=== PATIENT | female | born 1975 | race American Indian/Alaskan Native ===

== ENCOUNTER 2016-11-18 16:20 | Emergency (ER) | payer MEDICAID ==
[2016-11-18 17:09] LABS: Basophils % (Auto) 0.6 % (0.0-1.8); Eosinophils % (Auto) 1.5 % (0.0-4.3); Hemoglobin 10.8 gm/dl (10.1-14.3); Mean Corpuscular HGB Conc 32 % (30-34); Mean Corpuscular Volume 77 fl (79-97); Platelet Count 243 K/mm3 (140-440); Red Blood Count 4.43 M/mm3 (3.65-5.03); Red Cell Distribution Width 15.2 % (13.2-15.2); White Blood Count 5.9 K/mm3 (4.5-11.0)
[2016-11-18 17:11] LABS: Mean Corpuscular Hemoglobin 24 pg (28-32)
[2016-11-18 17:25] LABS: Alanine Aminotransferase 7 units/L (7-56); Albumin 4.1 g/dL (3.9-5); Albumin/Globulin Ratio 1.1 %; Alkaline Phosphatase 65 units/L (35-129); Anion Gap 17 mmol/L; Bilirubin,Total 0.3 mg/dL (0.1-1.2); Blood Urea Nitrogen 9 mg/dL (7-17); Calcium 9.2 mg/dL (8.4-10.2); Carbon Dioxide 22 mmol/L (22-30); Chloride 103.3 mmol/L (98-107); Glucose 85 mg/dL (65-100); Lipase 55 units/L (13-60); Potassium 3.4 mmol/L (3.6-5.0); Sodium 139 mmol/L (137-145); Total Protein 7.8 g/dL (6.3-8.2)
[2016-11-18 18:36] LABS: Bilirubin,Urine NEG (Negative); Blood,Urine MOD (Negative); Ketones,Urine NEG (Negative); Leukocyte Esterase,Urine NEG (Negative); Mucus,Urine FEW /HPF; Nitrite,Urine NEG (Negative); Protein,Urine <15 mg/dL mg/dL (Negative); Urobilinogen,Urine < 2.0 mg/dL (<2.0)
[2016-11-18] MEDS ORDERED: MORPHINE IV ONE (21:05)
[2016-11-18] MEDS ORDERED: ZOFRAN IV ONE (21:05)
[2016-11-18] MEDS ORDERED: NACL 0.9% 1000 ML 1,000 ML IV ONE (21:05)
--- NOTE | 2016-11-18 21:08 | Emergency Department Report ---
ED Abdominal Pain HPI - General Chief Complaint: Abdominal Pain Stated Complaint: VOMITTING,SEVERE HEADACHE Time Seen by Provider: 11/18/16 20:51 Source: patient Mode of arrival: Ambulatory Limitations: No Limitations - History of Present Illness Initial Comments: Pt is a 41-year-old female with a history of gastric bypass in 2005 now presenting with abdominal pain, nausea, vomiting, and headaches. Patient reports she's been nauseous and vomiting for one year however she's had increasing bouts of vomiting for the last 3 weeks with associated headache. She has had serial follow-up with her bariatric surgeon and/or stove mounter. Patient does report she had postoperative complications 3 in 2005. Otherwise no fevers, chills, chest pain, shortness of breath, trauma, travel, or sick contacts. MD Complaint: abdominal pain - Related Data Home Medications Medication Instructions Recorded Confirmed Last Taken metFORMIN [Glucophage] 500 mg PO BID 12/27/14 02/10/15 01/11/15 Previous Rx's Medication Instructions Recorded Last Taken Type [place] Carbonate [Eskalith] 300 mg PO Q12H #60 capsule 12/31/14 01/11/15 Rx Mirtazapine [Remeron] 30 mg PO QHS #30 tablet 12/31/14 01/11/15 Rx Ondansetron [Zofran ODT TAB] 4 mg PO Q6H PRN #30 tab.rapdis 12/31/14 01/11/15 Rx HYDROcodone/APAP 5-325 [[place] 1 - 2 each PO Q6HR PRN #14 tablet 01/24/16 Unknown Rx 5-325 mg TAB] Promethazine [Phenergan SUPPOS] 25 mg [place] Q6HR PRN #10 supp.rect 01/24/16 Unknown Rx Promethazine [Phenergan TAB] 25 mg PO Q6HR PRN #20 tab 01/24/16 Unknown Rx Omeprazole 40 mg PO QDAY #30 capsule. 10/06/16 Unknown Rx Ondansetron [Zofran TAB] 4 mg PO Q8HR PRN #15 tablet 10/06/16 Unknown Rx Ondansetron [Zofran ODT TAB] 8 mg PO Q8HR PRN #12 tab.rapdis 11/18/16 Unknown Rx Pantoprazole [Protonix TAB] 40 mg PO QDAY #30 tablet 11/18/16 Unknown Rx Allergies Allergy/AdvReac Type Severity Reaction Status Date / Time No Known Allergies Allergy Verified 12/27/14 11:03 ED Review of Systems ROS: Stated complaint: VOMITTING,SEVERE HEADACHE Other details as noted in HPI Comment: All other systems reviewed and negative ED Past Medical Hx - Past Medical History Previous Medical History?: Yes Hx Hypertension: Yes Hx Congestive Heart Failure: No Hx Diabetes: Yes (TYPE 2) Hx Psychiatric Treatment: Yes (SEVERE BIPOLAR / SEVERE DEPRESSION) Hx Asthma: No Hx COPD: No Hx HIV: No Additional medical history: ANEMIA. VERTIGO - Surgical History Past Surgical History?: Yes Additional Surgical History: GASTRIC BYPASS 2005. HYSTERECTOMY 2013 - Social History Smoking Status: Never Smoker Substance Use Type: None - Medications Home Medications: Home Medications Medication Instructions Recorded Confirmed Last Taken Type metFORMIN [Glucophage] 500 mg PO BID 12/27/14 02/10/15 01/11/15 History [place] Carbonate [Eskalith] 300 mg PO Q12H #60 capsule 12/31/14 02/10/15 Rx Mirtazapine [Remeron] 30 mg PO QHS #30 tablet 12/31/14 02/10/15 01/11/15 Rx Ondansetron [Zofran ODT TAB] 4 mg PO Q6H PRN #30 tab.rapdis 12/31/14 02/10/15 Rx HYDROcodone/APAP 5-325 [[place] 1 - 2 each PO Q6HR PRN #14 tablet 01/24/16 Unknown Rx 5-325 mg TAB] Promethazine [Phenergan SUPPOS] 25 mg [place] Q6HR PRN #10 supp.rect 01/24/16 Unknown Rx Promethazine [Phenergan TAB] 25 mg PO Q6HR PRN #20 tab 01/24/16 Unknown Rx Omeprazole 40 mg PO QDAY #30 capsule. 10/06/16 Unknown Rx Ondansetron [Zofran TAB] 4 mg PO Q8HR PRN #15 tablet 10/06/16 Unknown Rx Ondansetron [Zofran ODT TAB] 8 mg PO Q8HR PRN #12 tab.rapdis 11/18/16 Unknown Rx Pantoprazole [Protonix TAB] 40 mg PO QDAY #30 tablet 11/18/16 Unknown Rx ED Physical Exam - General Limitations: No Limitations General appearance: alert, in no apparent distress - Head Head exam: Present: atraumatic, normocephalic - Eye Eye exam: Present: normal appearance - ENT ENT exam: Present: mucous membranes moist - Neck Neck exam: Present: normal inspection - Respiratory Respiratory exam: Present: normal lung sounds bilaterally. Absent: respiratory distress - Cardiovascular Cardiovascular Exam: Present: regular rate, normal rhythm. Absent: systolic murmur, diastolic murmur, rubs, gallop - GI/Abdominal GI/Abdominal exam: Present: soft, normal bowel sounds. Absent: tenderness, guarding, rebound, rigid, organomegaly, pulsatile mass, hernia - Rectal Rectal exam: Present: deferred - Extremities Exam Extremities exam: Present: normal inspection - Back Exam Back exam: Present: normal inspection - Neurological Exam Neurological exam: Present: alert, oriented X3, CN II-XII intact, abnormal gait. Absent: motor sensory deficit - Psychiatric Psychiatric exam: Present: normal affect, normal mood - Skin Skin exam: Present: warm, dry, intact, normal color. Absent: rash ED Course Vital Signs 11/18/16 11/18/16 11/18/16 16:34 20:48 20:51 Temperature 98.6 F 98.3 F Pulse Rate 68 Pulse Rate [ 67 Lying] Pulse Rate [ 74 Sitting] Pulse Rate [ 81 Standing] Respiratory 16 Rate Blood Pressure 146/88 Blood Pressure 145/83 [Lying] Blood Pressure 137/87 [Sitting] Blood Pressure 144/89 [Standing] O2 Sat by Pulse 100 Oximetry ED Medical Decision Making - Lab Data Result diagrams: 11/18/16 16:46 11/18/16 16:46 - Radiology Data Radiology results: report reviewed CT abdomen and pelvis: Bilateral nephrolithiasis. No significant hydronephrosis. Left adrenal nodule suggesting adenomatous change, stable. Findings suggestive of constipation. Findings may be due to incomplete and nondistention versus nonspecific postinflammatory change in the esophagus. Correlate clinically. Critical care attestation.: If time is entered above; I have spent that time in minutes in the direct care of this critically ill patient, excluding procedure time. ED Disposition Clinical Impression: Abdominal pain, Chronic nausea, Headache Disposition: DISCHARGED TO HOME OR SELFCARE Is pt being admited?: No Condition: Stable Instructions: Abdominal Pain (ED), Acute Headache (ED) Prescriptions: Ondansetron [Zofran ODT TAB] 8 mg PO Q8HR PRN #12 tab.rapdis PRN Reason: Nausea Pantoprazole [Protonix TAB] 40 mg PO QDAY #30 tablet Referrals: PRIMARY CARE, [Primary Care Provider] - 3-5 Days
--- NOTE | 2016-11-18 22:05 | Cat Scan Report ---
FINAL REPORT EXAM: CT ABDOMEN PELVIS W CON HISTORY: abd pain, bariatric pt TECHNIQUE: Spiral CT scanning of the abdomen and pelvis after the uneventful administration of IV contrast. Multiplanar reformations. 100 mL Omnipaque IV. PRIORS: 24 January 2016. FINDINGS: Abdomen: Visualized lung bases show mild atelectatic change or scarring bilaterally. Distal esophagus incompletely or nondistended, with some wall thickening about the same. No radiopaque gallstones. Postsurgical changes again noted about the stomach. Liver without significant abnormality. Spleen without significant abnormality. Pancreas without significant abnormality. A few calcifications again noted in the bilateral kidneys, largest in left renal upper pole measuring approximately 6-7 mm. No significant hydronephrosis or abnormal perinephric fluid collection. Nodular density in the left adrenal gland measures approximately 2.1 cm about the same. Right adrenal gland grossly unremarkable. Pelvis: Bowel grossly unremarkable, with large amount of retained stool. Appendix within normal limits. No significant free peritoneal fluid or apparent adenopathy. Abdominal aorta non-aneurysmal. IMPRESSION: 1. Bilateral nephrolithiasis. No significant hydronephrosis. 2. Left adrenal nodule suggesting adenomatous change, stable. 3. Findings suggestive of constipation. 4. Findings which may be due to incomplete or nondistention versus nonspecific postinflammatory change in the esophagus. Correlate clinically.
[2016-11-18 22:30] VITALS: BP 129/78
== END 2016-11-18 22:35 | disposition home or self-care (01) ==
LOC: ED 16:20
DX: R10.9 Unspecified abdominal pain (principal); R11.0 Nausea; R51 Headache; I10 Essential (primary) hypertension; E11.9 Type 2 diabetes mellitus without complications; F32.9 Major depressive disorder, single episode, unspecified; D64.9 Anemia, unspecified
CPT/HCPCS: 36415; 74177; 80053; 81001; 83690; 85025; 96361; 96374; 96375; 99284; J2270; J2405; J7030; Q9967

== ENCOUNTER 2017-04-01 09:05 | Inpatient (IN) | payer MEDICAID ==
[2017-04-01 10:03] LABS: Basophils % (Auto) 0.5 % (0.0-1.8); Eosinophils % (Auto) 1.2 % (0.0-4.3); Hematocrit 35.5 % (30.3-42.9); Hemoglobin 11.3 gm/dl (10.1-14.3); Mean Corpuscular HGB Conc 32 % (30-34); Mean Corpuscular Volume 79 fl (79-97); Platelet Count 267 K/mm3 (140-440); Red Blood Count 4.51 M/mm3 (3.65-5.03); Red Cell Distribution Width 15.5 % (13.2-15.2); White Blood Count 4.8 K/mm3 (4.5-11.0)
[2017-04-01 10:19] LABS: Mean Corpuscular Hemoglobin 25 pg (28-32)
[2017-04-01 10:25] LABS: Alanine Aminotransferase 6 units/L (7-56); Albumin 4.1 g/dL (3.9-5); Alkaline Phosphatase 67 units/L (35-129); Anion Gap 17 mmol/L; Blood Urea Nitrogen 9 mg/dL (7-17); Calcium 9.2 mg/dL (8.4-10.2); Carbon Dioxide 23 mmol/L (22-30); Chloride 105.6 mmol/L (98-107); Glucose 93 mg/dL (65-100); Lipase 21 units/L (13-60); Potassium 3.7 mmol/L (3.6-5.0); Sodium 142 mmol/L (137-145); Total Protein 8.4 g/dL (6.3-8.2)
[2017-04-01] MEDS ORDERED: ZOFRAN IV ONE (10:34)
[2017-04-01] MEDS ORDERED: DILAUDID IV ONE ×3 (10:34→14:20)
[2017-04-01] MEDS ORDERED: NACL 0.9% 1000 ML 1,000 ML IV ONE ×2 (10:34→10:37)
--- NOTE | 2017-04-01 10:42 | Emergency Department Report ---
ED Abdominal Pain HPI - General Chief Complaint: Abdominal Pain Stated Complaint: NAUSEA/DIZZY/FEVER Time Seen by Provider: 04/01/17 09:51 Source: patient Mode of arrival: Ambulatory Limitations: No Limitations - History of Present Illness Initial Comments: 41-year-old female with a past medical history of diabetes, hypertension, bipolar disease, anemia, gastric bypass, and hysterectomy presents to the Hospital with complaints of abdominal pain, nausea, and vomiting 6 days. Patient complains of mid abdominal sharp intermittent pain with palpation. Pain rated moderate to severe in intensity. No alleviating factors. Patient has been unable to tolerate food or liquids. For the last 2 days patient has noticed blood in her vomit which has decreases and is more streak like today. No reports of melena, hematochezia, diarrhea, recent travel, or sick contacts. Patient is no longer taking a PPI. She reports a fever 102 yesterday. Positive lightheadedness - Related Data Home Medications Medication Instructions Recorded Confirmed Last Taken metFORMIN [Glucophage] 500 mg PO BID 12/27/14 02/10/15 01/11/15 Previous Rx's Medication Instructions Recorded Last Taken Type [place] Carbonate [Eskalith] 300 mg PO Q12H #60 capsule 12/31/14 01/11/15 Rx Mirtazapine [Remeron] 30 mg PO QHS #30 tablet 12/31/14 01/11/15 Rx Ondansetron [Zofran ODT TAB] 4 mg PO Q6H PRN #30 tab.rapdis 12/31/14 01/11/15 Rx HYDROcodone/APAP 5-325 [[place] 1 - 2 each PO Q6HR PRN #14 tablet 01/24/16 Unknown Rx 5-325 mg TAB] Promethazine [Phenergan SUPPOS] 25 mg [place] Q6HR PRN #10 supp.rect 01/24/16 Unknown Rx Promethazine [Phenergan TAB] 25 mg PO Q6HR PRN #20 tab 01/24/16 Unknown Rx Omeprazole 40 mg PO QDAY #30 capsule.dr 10/06/16 Unknown Rx Ondansetron [Zofran TAB] 4 mg PO Q8HR PRN #15 tablet 10/06/16 Unknown Rx Ondansetron [Zofran ODT TAB] 8 mg PO Q8HR PRN #12 tab.rapdis 11/18/16 Unknown Rx Pantoprazole [Protonix TAB] 40 mg PO QDAY #30 tablet 11/18/16 Unknown Rx Allergies Allergy/AdvReac Type Severity Reaction Status Date / Time No Known Allergies Allergy Verified 12/27/14 11:03 ED Review of Systems ROS: Stated complaint: NAUSEA/DIZZY/FEVER Other details as noted in HPI Comment: All other systems reviewed and negative Other: Constitutional: No fevers chills Eyes: No eye pain visual changes ENT: Positive throat pain Neck: Denies pain Respiratory: Denies cough wheezing shortness of breath Cardiovascular: Denies chest pain, palpitations, syncope GI: As per HPI : Denies dysuria Musculoskeletal: Denies back pain Skin: Denies rash, lesions, erythema Neurologic: Denies headache, numbness, weakness Psychiatric: Denies suicidal ideation, hallucinations ED Past Medical Hx - Past Medical History Previous Medical History?: Yes Hx Hypertension: Yes Hx Congestive Heart Failure: No Hx Diabetes: Yes (TYPE 2) Hx Psychiatric Treatment: Yes (SEVERE BIPOLAR / SEVERE DEPRESSION) Hx Asthma: No Hx COPD: No Hx HIV: No Additional medical history: ANEMIA. VERTIGO - Surgical History Past Surgical History?: Yes Additional Surgical History: GASTRIC BYPASS 2005. HYSTERECTOMY 2013 - Social History Smoking Status: Never Smoker Substance Use Type: None - Medications Home Medications: Home Medications Medication Instructions Recorded Confirmed Last Taken Type metFORMIN [Glucophage] 500 mg PO BID 12/27/14 02/10/15 01/11/15 History [place]ate [Eskalith] 300 mg PO Q12H #60 capsule 12/31/14 02/10/15 Rx Mirtazapine [Remeron] 30 mg PO QHS #30 tablet 12/31/14 02/10/15 01/11/15 Rx Ondansetron [Zofran ODT TAB] 4 mg PO Q6H PRN #30 tab.rapdis 12/31/14 02/10/15 Rx HYDROcodone/APAP 5-325 [[place] 1 - 2 each PO Q6HR PRN #14 tablet 01/24/16 Unknown Rx 5-325 mg TAB] Promethazine [Phenergan SUPPOS] 25 mg [place] Q6HR PRN #10 supp.rect 01/24/16 Unknown Rx Promethazine [Phenergan TAB] 25 mg PO Q6HR PRN #20 tab 01/24/16 Unknown Rx Omeprazole 40 mg PO QDAY #30 capsule. 10/06/16 Unknown Rx Ondansetron [Zofran TAB] 4 mg PO Q8HR PRN #15 tablet 10/06/16 Unknown Rx Ondansetron [Zofran ODT TAB] 8 mg PO Q8HR PRN #12 tab.rapdis 11/18/16 Unknown Rx Pantoprazole [Protonix TAB] 40 mg PO QDAY #30 tablet 11/18/16 Unknown Rx ED Physical Exam - General Limitations: No Limitations - Other Other exam information: General: No limitations, patient is alert in no acute distress Head exam: Atraumatic, normocephalic Eyes exam: Normal appearance, pupils equal reactive to light, extraocular movements intact ENT: Moist mucous membrane, mild erythema to posterior pharynx with small exudate greater on the right. Neck exam: Normal inspection, full range of motion, no meningismus nontender Respiratory exam: Clear to auscultation bilateral, no wheezes, rales, crackles Cardiovascular: Normal rate and rhythm Abdomen: Soft, nondistended, and generalized abdominal tenderness on the right side of the abdomen, with normal bowel sounds, no rebound, or guarding Extremity: Full range of motion normal inspection no deformity Back: Normal Inspection, full range of motion, no tenderness Neurologic: Alert, oriented x3, cranial nerves intact, no motor or sensory deficit Psychiatric: normal affect, normal mood Skin: Warm, dry, intact ED Course Vital Signs 04/01/17 04/01/17 04/01/17 09:20 10:01 10:03 Temperature 98.2 F Pulse Rate 80 86 Respiratory 18 16 Rate Blood Pressure 118/84 124/90 124/90 O2 Sat by Pulse 100 100 Oximetry 04/01/17 04/01/17 04/01/17 10:05 10:07 10:09 Temperature Pulse Rate 79 71 76 Respiratory 17 21 21 Rate Blood Pressure 124/90 124/90 124/90 O2 Sat by Pulse 100 100 100 Oximetry 04/01/17 04/01/17 04/01/17 10:11 10:13 10:17 Temperature Pulse Rate 65 78 Respiratory 20 17 20 Rate Blood Pressure 124/90 124/90 O2 Sat by Pulse 100 100 100 Oximetry 04/01/17 04/01/17 04/01/17 11:17 11:18 11:19 Temperature Pulse Rate 57 L 64 59 L Respiratory 12 13 11 L Rate Blood Pressure 134/93 134/93 134/93 O2 Sat by Pulse 100 100 100 Oximetry 04/01/17 04/01/17 04/01/17 11:21 11:23 11:25 Temperature Pulse Rate 63 73 71 Respiratory 14 11 L 13 Rate Blood Pressure 134/93 134/93 134/93 O2 Sat by Pulse 99 99 98 Oximetry 04/01/17 04/01/17 04/01/17 11:27 11:29 11:31 Temperature Pulse Rate 56 L 56 L 61 Respiratory 8 L 9 L 9 L Rate Blood Pressure 134/93 134/93 134/93 O2 Sat by Pulse 100 100 100 Oximetry 04/01/17 04/01/17 04/01/17 11:33 11:35 11:37 Temperature Pulse Rate 71 56 L 75 Respiratory 12 9 L 9 L Rate Blood Pressure 134/93 134/93 134/93 O2 Sat by Pulse 99 100 100 Oximetry 04/01/17 04/01/17 04/01/17 11:39 11:41 11:43 Temperature Pulse Rate 61 63 58 L Respiratory 9 L 13 13 Rate Blood Pressure 134/93 134/93 134/93 O2 Sat by Pulse 100 100 100 Oximetry 04/01/17 04/01/17 04/01/17 11:45 11:47 11:49 Temperature Pulse Rate 60 59 L 58 L Respiratory 16 16 13 Rate Blood Pressure 134/93 134/93 134/93 O2 Sat by Pulse 100 100 100 Oximetry 04/01/17 04/01/17 04/01/17 11:51 11:53 11:55 Temperature Pulse Rate 60 59 L 52 L Respiratory 19 13 11 L Rate Blood Pressure 134/93 134/93 134/93 O2 Sat by Pulse 92 100 100 Oximetry 04/01/17 04/01/17 04/01/17 11:57 11:59 12:01 Temperature Pulse Rate 54 L 52 L 67 Respiratory 12 9 L 10 L Rate Blood Pressure 134/93 134/93 120/76 O2 Sat by Pulse 100 100 97 Oximetry 04/01/17 04/01/17 04/01/17 12:03 12:05 12:07 Temperature Pulse Rate 61 53 L 65 Respiratory 14 15 15 Rate Blood Pressure 120/76 120/76 120/76 O2 Sat by Pulse 75 L 92 94 Oximetry 04/01/17 04/01/17 04/01/17 12:09 12:11 12:13 Temperature Pulse Rate 69 80 66 Respiratory 9 L 13 12 Rate Blood Pressure 120/76 120/76 120/76 O2 Sat by Pulse 99 97 98 Oximetry 04/01/17 04/01/17 04/01/17 12:15 12:17 12:19 Temperature Pulse Rate 57 L 53 L 59 L Respiratory 20 13 13 Rate Blood Pressure 120/76 120/76 120/76 O2 Sat by Pulse 100 100 100 Oximetry 04/01/17 04/01/17 04/01/17 12:21 12:23 12:25 Temperature Pulse Rate 56 L 66 63 Respiratory 14 15 13 Rate Blood Pressure 120/76 120/76 120/76 O2 Sat by Pulse 99 100 100 Oximetry 04/01/17 04/01/17 04/01/17 12:27 12:29 12:31 Temperature Pulse Rate 57 L 59 L 54 L Respiratory 15 12 12 Rate Blood Pressure 120/76 120/76 120/76 O2 Sat by Pulse 98 97 98 Oximetry 04/01/17 04/01/17 04/01/17 12:33 12:35 12:37 Temperature Pulse Rate 56 L 58 L 64 Respiratory 14 13 11 L Rate Blood Pressure 120/76 120/76 120/76 O2 Sat by Pulse 97 97 100 Oximetry 04/01/17 04/01/17 04/01/17 12:39 12:41 12:43 Temperature Pulse Rate 71 65 65 Respiratory 13 11 L 13 Rate Blood Pressure 120/76 120/76 120/76 O2 Sat by Pulse 99 100 98 Oximetry 04/01/17 04/01/17 04/01/17 12:45 12:47 12:48 Temperature Pulse Rate 68 65 56 L Respiratory 13 12 13 Rate Blood Pressure 120/76 120/76 120/76 O2 Sat by Pulse 97 97 100 Oximetry 04/01/17 04/01/17 13:12 13:13 Temperature Pulse Rate 57 L 62 Respiratory 13 13 Rate Blood Pressure 120/76 121/80 O2 Sat by Pulse 100 Oximetry ED Medical Decision Making - Lab Data Result diagrams: 04/01/17 09:45 04/01/17 09:45 Lab Results 04/01/17 04/01/17 04/01/17 Range/Units 09:30 09:45 09:45 WBC 4.8 (4.5-11.0) K/mm3 RBC 4.51 (3.65-5.03) M/mm3 Hgb 11.3 (10.1-14.3) gm/dl Hct 35.5 (30.3-42.9) % MCV 79 (79-97) fl MCH 25 L (28-32) pg MCHC 32 (30-34) % RDW 15.5 H (13.2-15.2) % Plt Count 267 (140-440) K/mm3 Lymph % (Auto) 24.8 (13.4-35.0) % [place] % (Auto) 5.0 (0.0-7.3) % Eos % (Auto) 1.2 (0.0-4.3) % Baso % (Auto) 0.5 (0.0-1.8) % Lymph # 1.2 (1.2-5.4) K/mm3 [place] # 0.2 (0.0-0.8) K/mm3 Eos # 0.1 (0.0-0.4) K/mm3 Baso # 0.0 (0.0-0.1) K/mm3 Seg Neutrophils % 68.5 (40.0-70.0) % Seg Neutrophils # 3.3 (1.8-7.7) K/mm3 Sodium 142 (137-145) mmol/L Potassium 3.7 (3.6-5.0) mmol/L Chloride 105.6 (98-107) mmol/L Carbon Dioxide 23 (22-30) mmol/L Anion Gap 17 mmol/L BUN 9 (7-17) mg/dL Creatinine 0.6 L (0.7-1.2) mg/dL Estimated GFR > 60 ml/min BUN/Creatinine Ratio 15.00 % Glucose 93 (65-100) mg/dL POC Glucose 102 (70-105) Calcium 9.2 (8.4-10.2) mg/dL Total Bilirubin 0.50 (0.1-1.2) mg/dL AST 15 (5-40) units/L ALT 6 L (7-56) units/L Alkaline Phosphatase 67 (35-129) units/L Total Protein 8.4 H (6.3-8.2) g/dL Albumin 4.1 (3.9-5) g/dL Albumin/Globulin Ratio 1.0 % Lipase 21 (13-60) units/L Urine Color (Yellow) Urine Turbidity (Clear) Urine pH (5.0-7.0) Ur Specific [place] (1.003-1.030) Urine Protein (Negative) mg/dL Urine Glucose (UA) (Negative) mg/dL Urine Ketones (Negative) mg/dL Urine Blood (Negative) Urine Nitrite (Negative) Urine Bilirubin (Negative) Urine Urobilinogen (<2.0) mg/dL Ur Leukocyte Esterase (Negative) Urine WBC (Auto) (0.0-6.0) /HPF Urine RBC (Auto) (0.0-6.0) /HPF U Epithel Cells (Auto) (0-13.0) /HPF Urine Bacteria (Auto) (Negative) /HPF Hyaline Casts /LPF Urine Mucus /HPF 04/01/17 Range/Units 10:36 WBC (4.5-11.0) K/mm3 RBC (3.65-5.03) M/mm3 Hgb (10.1-14.3) gm/dl Hct (30.3-42.9) % MCV (79-97) fl MCH (28-32) pg MCHC (30-34) % RDW (13.2-15.2) % Plt Count (140-440) K/mm3 Lymph % (Auto) (13.4-35.0) % [place] % (Auto) (0.0-7.3) % Eos % (Auto) (0.0-4.3) % Baso % (Auto) (0.0-1.8) % Lymph # (1.2-5.4) K/mm3 [place] # (0.0-0.8) K/mm3 Eos # (0.0-0.4) K/mm3 Baso # (0.0-0.1) K/mm3 Seg Neutrophils % (40.0-70.0) % Seg Neutrophils # (1.8-7.7) K/mm3 Sodium (137-145) mmol/L Potassium (3.6-5.0) mmol/L Chloride (98-107) mmol/L Carbon Dioxide (22-30) mmol/L Anion Gap mmol/L BUN (7-17) mg/dL Creatinine (0.7-1.2) mg/dL Estimated GFR ml/min BUN/Creatinine Ratio % Glucose (65-100) mg/dL POC Glucose (70-105) Calcium (8.4-10.2) mg/dL Total Bilirubin (0.1-1.2) mg/dL AST (5-40) units/L ALT (7-56) units/L Alkaline Phosphatase (35-129) units/L Total Protein (6.3-8.2) g/dL Albumin (3.9-5) g/dL Albumin/Globulin Ratio % Lipase (13-60) units/L Urine Color Yellow (Yellow) Urine Turbidity Clear (Clear) Urine pH 5.0 (5.0-7.0) Ur Specific [place] 1.025 (1.003-1.030) Urine Protein 100 mg/dl (Negative) mg/dL Urine Glucose (UA) Neg (Negative) mg/dL Urine Ketones Neg (Negative) mg/dL Urine Blood Sm (Negative) Urine Nitrite Neg (Negative) Urine Bilirubin Neg (Negative) Urine Urobilinogen 2.0 (<2.0) mg/dL Ur Leukocyte Esterase Neg (Negative) Urine WBC (Auto) 3.0 (0.0-6.0) /HPF Urine RBC (Auto) 4.0 (0.0-6.0) /HPF U Epithel Cells (Auto) 6.0 (0-13.0) /HPF Urine Bacteria (Auto) 1+ (Negative) /HPF Hyaline Casts 1 /LPF Urine Mucus 3+ /HPF - Radiology Data Radiology results: report reviewed CT abdomen and pelvis without contrast: No acute abdominal process. Bilateral nephrolithiasis nonobstructing, surgical changes. No appreciable change compared to November 18, 2016 - Medical Decision Making Given patient's history of stricture at the gastric anastomosis site as similar presentation she will be admitted to hospital for further evaluation. Hematemesis likely secondary to Lucy-Chirinos tear but pt also has a history of an ulcer. In ED patient received multiple doses of Dilaudid, Zofran, and Protonix. Hospitalist has been informed. No signs of cardiac instability and no signs of anemia. - Differential Diagnosis gastritis, pancreatitis, hepatitis, viral syndrome, pharyngitis Critical Care Time: No Critical care attestation.: If time is entered above; I have spent that time in minutes in the direct care of this critically ill patient, excluding procedure time. ED Disposition Clinical Impression: Intractable abdominal pain, Vomiting, Hematemesis, Hx of gastric ulcer, Hx of gastric bypass Disposition: [id number] OP ADMIT IP TO THIS HOSP Is pt being admited?: Yes Condition: Stable Time of Disposition: 14:31 (Dr Gonzalez/hosp)
[2017-04-01 10:52] LABS: Bacteria,Urine 1+ /HPF (Negative); Bilirubin,Urine NEG (Negative); Blood,Urine SM (Negative); Ketones,Urine NEG (Negative); Leukocyte Esterase,Urine NEG (Negative); Mucus,Urine 3+ /HPF; Nitrite,Urine NEG (Negative)
[2017-04-01] MEDS: PROTONIX IV ONE ×2 (11:39→12:17)
[2017-04-01] MEDS ORDERED: NACL ONE (11:46)
--- NOTE | 2017-04-01 13:53 | Cat Scan Report ---
CT OF THE ABDOMEN AND PELVIS WITHOUT CONTRAST HISTORY: Abdominal pain, vomiting. TECHNIQUE: Helical CT without contrast. Sagittal and coronal reformatted images. FINDINGS: Compared to the CT abdomen pelvis with contrast performed 11/18/16. Heart size is normal. The visualized lung bases are clear. No suspicious bony lesion or fracture. The liver, biliary system, pancreas, spleen, adrenal glands, and aorta are within normal limits. Bilateral nephrolithiasis is again identified. There are 3 or 4 tiny calyceal stones in the right kidney. The largest stone measures 3 mm near the superior pole. There is a solitary 7 mm calyceal stone in the superior left kidney. No ureteral stones or hydronephrosis. The bladder is unremarkable. Surgical suture lines are noted along the greater curvature the stomach and a few proximal small bowel loops. Please correlate with surgical history. There is no evidence for bowel obstruction or bowel wall thickening. Normal appendix. Hysterectomy changes are noted. IMPRESSION: No acute abdominal process is appreciated. Bilateral nephrolithiasis, nonobstructing. Surgical changes as described. No significant change can be appreciated since 11/18/16.
--- NOTE | 2017-04-01 14:46 | Admit Criteria Form ---
Admission Criteria Documentation: ABDOMINAL PAIN Clinical Indications for Admission to Inpatient Care ( [facility]/check or initial the applicable condition/criteria): Admission is indicated for ANY ONE of the following (1)(2)(3)(4)(5)(6): [ ]I. Surgery needed that cannot be performed on ambulatory basis [ ]II. Peritoneal signs present (eg, rebound tenderness, rigidity) [ ]III. Evaluation requires patient to not eat or drink for extended period ( eg, more than 24 hours). [x]IV. Inpatient admission required[B] rather than observation care (see Abdominal Pain: Observation Care guideline as appropriate) because of ANY ONE of the following(7)(8)(9): [ ] a) Hemodynamic instability [ ]b) Severe pain requiring acute inpatient management [ ]c) Identification of etiology or finding that requires inpatient care (eg, aortic dissection, free air,bowel ischemia)(10) [ ]d) Absent bowel sounds with complete ileus (11) [ ]e) Signs of intestinal obstruction[C] [ ]f) Suspected toxic megacolon [ ]g) Severe electrolyte abnormalities requiring inpatient care [ ]h) High fever or infection requiring inpatient admission as indicated by ANY ONE of the following (12)(13): [ ]i) Appropriate outpatient or observation care antimicrobial treatment unavailable, not effective, or not feasible [ ]ii) Documented bacteremia [ ]iii) Temperature greater than 104.9 degrees F (40.5 degrees C) (oral) [ ]iv) Temperature greater than 103.1 degrees F (39.5 degrees C) ( oral) or less than 96.8 degrees F (36 degrees C) (rectal) that does not respond to all emergency treatment measures [ ]i) IV fluid required rather than oral rehydration to replace significant ongoing (eg, for greater than 24 hours) losses (greater than 3 L/m2 per day)(14)(15) [ ]j) Percutaneous or open drainage (eg, abscess, biliary tract) procedures [ ]k) Parenteral nutrition regimen that must be implemented on inpatient basis [x]l) Other condition, treatment, or monitoring requiring inpatient admission Extended stay beyond goal length of stay may be needed for (1)(3)(4)(10)(16): [ ]a) Surgery (e.g., colectomy, revascularization procedure) [ ]b) Persistent abdominal pain with suspected intra-abdominal process [ ]c) Diagnosed condition requiring continued stay (e.g., pancreatitis, complicated diverticulitis) The original [facility] [employer] content created by [facility] has been revised. The portions of the content which have been revised are identified through the use of italic text or in bold, and [facility] has neither reviewed nor approved the modified material.All other unmodified content is copyright [facility]. Please see references footnoted in the original [facility] edition 2017 Admission Criteria Met: Yes
--- NOTE | 2017-04-01 15:07 | History and Physical Report ---
History of Present Illness Chief complaint: My stomach hurts, and I feel nauseated History of present illness: 41 YO Female with HTN, DM, Anemia, Bipolar, Obesity, Metabolic Syndrome presents to ED for evaluation. Pt states that she had experienced intermittent nausea and vomiting for the past 1year, but has experienced acutely worsening symptoms over the past 6 days. Pt nausea and vomiting followed by abdominal pain 5/10, diffuse, nonradiating, no alleviating factors. Pt is unable to tolerated oral diet(solid or liquid). Pt also complains of 4 episodes of vomiting up blood over the past 2 days. Pt denies fever, chills, CP, Palpitations, melena, hematochezia, diarrhea, recent travel, or sick contacts. Patient is no longer taking a PPI. Past History Past Medical History: anemia, diabetes, hypertension, other (bipolar, obesity, metaabolic synddrome) Past Surgical History: hysterectomy, Other (gastric bypass) Social history: , lives with family. denies: smoking, alcohol abuse, prescription drug abuse Family history: diabetes, hypertension Medications and Allergies Allergies Allergy/AdvReac Type Severity Reaction Status Date / Time No Known Allergies Allergy Verified 12/27/14 11:03 Home Medications Medication Instructions Recorded Confirmed Last Taken Type Bismuth Subsalicylate [Pepto 15 ml PO PRN PRN 04/01/17 04/01/17 Unknown History Bismol] Review of Systems Constitutional: no weight loss, no weight gain, no fever, no chills Ears, nose, mouth and throat: no ear pain, no ear discharge, no tinnitis, no decreased hearing, no nose pain Breasts: no change in shape, no swelling, no mass Cardiovascular: no chest pain, no orthopnea, no palpitations, no rapid/ irregular heart beat, no edema, no syncope Respiratory: no cough, no cough with sputum, no excessive sputum, no hemoptysis Gastrointestinal: no nausea, no vomiting, no diarrhea, no constipation Genitourinary Female: no pelvic pain, no flank pain, no menorrhagia, no dysuria , no urinary frequency, no urgency Rectal: no pain, no incontinence, no bleeding Musculoskeletal: no neck pain, no shooting arm pain, no arm numbness/tingling, no low back pain, no shooting leg pain, no leg numbness/tingling Integumentary: no rash, no pruritis, no redness, no sores, no wounds Neurological: no transient paralysis, no paralysis, no weakness, no parathesias , no numbness Psychiatric: no memory loss, no change in sleep habits, no sleep disturbances, no insomnia, no hypersomnia, no change in appetite Endocrine: no cold intolerance, no heat intolerance, no polyphagia, no excessive thirst, no polydipsia Hematologic/Lymphatic: no easy bruising, no easy bleeding Allergic/Immunologic: no urticaria, no allergic rhinitis, no wheezing Exam - Constitutional Vitals: Temp Pulse Resp BP Pulse Ox 98.2 F 62 13 121/80 100 04/01/17 09:20 04/01/17 13:13 04/01/17 13:13 04/01/17 13:13 04/01/17 13:13 General appearance: Present: mild distress, obese - EENT Eyes: Present: PERRL ENT: hearing intact, clear oral mucosa - Neck Neck: Present: supple, normal ROM - Respiratory Respiratory: bilateral: CTA - Cardiovascular Heart Sounds: Present: S1 & S2. Absent: rub, click - Extremities Extremities: pulses symmetrical, No edema Peripheral Pulses: within normal limits - Abdominal General gastrointestinal: Present: soft, tender. Absent: hepatomegaly, splenomegaly, mass Localized gastrointestinal: tender: diffuse Female genitourinary: Present: normal - Integumentary Integumentary: Present: clear, warm, dry - Musculoskeletal Musculoskeletal: gait normal, strength equal bilaterally - Psychiatric Psychiatric: appropriate mood/affect, intact judgment & insight - Neurologic Neurologic: CNII-XII intact, moves all extremities Results - Labs CBC & Chem 7: 04/01/17 09:45 04/01/17 09:45 Labs: Abnormal lab results 04/01/17 04/01/17 Range/Units 09:45 09:45 MCH 25 L (28-32) pg RDW 15.5 H (13.2-15.2) % Creatinine 0.6 L (0.7-1.2) mg/dL ALT 6 L (7-56) units/L Total Protein 8.4 H (6.3-8.2) g/dL Assessment and Plan - Patient Problems (1) Upper GI bleed Current Visit: Yes Status: Acute Plan to address problem: GI consulted, supportive care, repeat cbc, PPI therapy (2) Hematemesis Current Visit: Yes Status: Acute Qualifiers: Nausea presence: N Plan to address problem: Suspected secondary to parminder lyons tear. Supportive care, Endoscopy as per GI team. (3) Intractable abdominal pain Current Visit: Yes Status: Acute Plan to address problem: Pain control, supportive care. (4) Bipolar disorder Current Visit: No Status: Chronic Qualifiers: Active/Remission status: currently active Current bipolar episode type: depressed Current episode severity: current episode moderate Psychotic features: without psychotic features Most recent bipolar episode type: M Plan to address problem: resume home medication, supportive care. (5) Diabetes mellitus Current Visit: No Status: Chronic Qualifiers: Diabetes mellitus type: type 2 Diabetes mellitus complication status: without complication Diabetes mellitus complication detail: D Diabetic retinopathy severity: D Proliferative retinopathy type: P Diabetes mellitus macular edema: D Diabetes mellitus half-way insulin use: D Laterality: L Chronic kidney disease stage: C Plan to address problem: ADA diet, insulin, accu check (6) DVT prophylaxis Current Visit: Yes Status: Acute
[2017-04-01] MEDS ORDERED: TYLENOL PO PRN (15:10)
[2017-04-01] MEDS ORDERED: PROVENTIL IH PRN (15:10)
[2017-04-01] MEDS: CARAFATE PO SCH ×2 (17:58→21:50)
[2017-04-01] MEDS ORDERED: MORPHINE IV ONE (22:44)
[2017-04-02] MEDS: ZOFRAN IV PRN ×2 (08:33→16:49)
[2017-04-02] MEDS ORDERED: MORPHINE IV PRN (09:52)
--- NOTE | 2017-04-02 09:55 | Progress Note ---
Assessment and Plan Assessment and plan: --acute upper GI bleeding No new episodes of bleeding, nothing by mouth, Protonix GI evaluation, closely monitor H&H and transfuse as needed --Abdominal pain: Probably secondary to upper GI bleeding, symptomatic management Follow GI evaluation --History of bipolar disorder; resume home medications consisted of psych evaluation if needed --Type 2 diabetes mellitus; Accu-Chek sliding scale coverage and ADA diet and insulin as needed --Asymptomatic bradycardia --DVT prophylaxis; SCDs No pharmacologic anticoagulation at this point in view of GI bleeding History Interval history: Patient seen and evaluated medical records reviewed Admitted for hematemesis No new episodes since admission Hospitalist Physical - Constitutional Vitals: Temp Pulse Resp BP Pulse Ox 98.0 F 61 18 101/63 98 04/02/17 08:27 04/02/17 08:27 04/02/17 08:27 04/02/17 08:27 04/02/17 08:27 General appearance: Present: mild distress, obese - EENT Eyes: Present: PERRL, EOM intact - Neck Neck: Present: supple, normal ROM - Respiratory Respiratory effort: normal Respiratory: bilateral: diminished, negative: rales, rhonchi, wheezing - Cardiovascular Rhythm: regular Heart Sounds: Present: S1 & S2 - Extremities Extremities: no ischemia, No edema - Abdominal General gastrointestinal: soft, non-tender, non-distended, normal bowel sounds - Integumentary Integumentary: Present: clear, warm - Psychiatric Psychiatric: appropriate mood/affect, cooperative - Neurologic Neurologic: CNII-XII intact, moves all extremities Results - Labs CBC & Chem 7: 04/03/17 05:54 04/03/17 05:54 Labs: Laboratory Last Values WBC 4.8 K/mm3 (4.5-11.0) 04/01/17 09:45 RBC 4.51 M/mm3 (3.65-5.03) 04/01/17 09:45 Hgb 11.3 gm/dl (10.1-14.3) 04/01/17 09:45 Hct 35.5 % (30.3-42.9) 04/01/17 09:45 MCV 79 fl (79-97) 04/01/17 09:45 MCH 25 pg (28-32) L 04/01/17 09:45 MCHC 32 % (30-34) 04/01/17 09:45 RDW 15.5 % (13.2-15.2) H 04/01/17 09:45 Plt Count 267 K/mm3 (140-440) 04/01/17 09:45 Lymph % (Auto) 24.8 % (13.4-35.0) 04/01/17 09:45 [place] % (Auto) 5.0 % (0.0-7.3) 04/01/17 09:45 Eos % (Auto) 1.2 % (0.0-4.3) 04/01/17 09:45 Baso % (Auto) 0.5 % (0.0-1.8) 04/01/17 09:45 Lymph # 1.2 K/mm3 (1.2-5.4) 04/01/17 09:45 [place] # 0.2 K/mm3 (0.0-0.8) 04/01/17 09:45 Eos # 0.1 K/mm3 (0.0-0.4) 04/01/17 09:45 Baso # 0.0 K/mm3 (0.0-0.1) 04/01/17 09:45 Seg Neutrophils % 68.5 % (40.0-70.0) 04/01/17 09:45 Seg Neutrophils # 3.3 K/mm3 (1.8-7.7) 04/01/17 09:45 Sodium 142 mmol/L (137-145) 04/01/17 09:45 Potassium 3.7 mmol/L (3.6-5.0) 04/01/17 09:45 Chloride 105.6 mmol/L (98-107) 04/01/17 09:45 Carbon Dioxide 23 mmol/L (22-30) 04/01/17 09:45 Anion Gap 17 mmol/L 04/01/17 09:45 BUN 9 mg/dL (7-17) 04/01/17 09:45 Creatinine 0.6 mg/dL (0.7-1.2) L 04/01/17 09:45 Estimated GFR > 60 ml/min 04/01/17 09:45 BUN/Creatinine Ratio 15.00 % 04/01/17 09:45 Glucose 93 mg/dL (65-100) 04/01/17 09:45 POC Glucose 102 (70-105) 04/01/17 09:30 Calcium 9.2 mg/dL (8.4-10.2) 04/01/17 09:45 Total Bilirubin 0.50 mg/dL (0.1-1.2) 04/01/17 09:45 AST 15 units/L (5-40) 04/01/17 09:45 ALT 6 units/L (7-56) L 04/01/17 09:45 Alkaline Phosphatase 67 units/L (35-129) 04/01/17 09:45 Total Protein 8.4 g/dL (6.3-8.2) H 04/01/17 09:45 Albumin 4.1 g/dL (3.9-5) 04/01/17 09:45 Albumin/Globulin Ratio 1.0 % 04/01/17 09:45 Lipase 21 units/L (13-60) 04/01/17 09:45 Urine Color Yellow (Yellow) 04/01/17 10:36 Urine Turbidity Clear (Clear) 04/01/17 10:36 Urine pH 5.0 (5.0-7.0) 04/01/17 10:36 Ur Specific Stewart 1.025 (1.003-1.030) 04/01/17 10:36 Urine Protein 100 mg/dl mg/dL (Negative) 04/01/17 10:36 Urine Glucose (UA) Neg mg/dL (Negative) 04/01/17 10:36 Urine Ketones Neg mg/dL (Negative) 04/01/17 10:36 Urine Blood Sm (Negative) 04/01/17 10:36 Urine Nitrite Neg (Negative) 04/01/17 10:36 Urine Bilirubin Neg (Negative) 04/01/17 10:36 Urine Urobilinogen 2.0 mg/dL (<2.0) 04/01/17 10:36 Ur Leukocyte Esterase Neg (Negative) 04/01/17 10:36 Urine WBC (Auto) 3.0 /HPF (0.0-6.0) 04/01/17 10:36 Urine RBC (Auto) 4.0 /HPF (0.0-6.0) 04/01/17 10:36 U Epithel Cells (Auto) 6.0 /HPF (0-13.0) 04/01/17 10:36 Urine Bacteria (Auto) 1+ /HPF (Negative) 04/01/17 10:36 Hyaline Casts 1 /LPF 04/01/17 10:36 Urine Mucus 3+ /HPF 04/01/17 10:36
[2017-04-02] MEDS: CARAFATE PO SCH ×2 (09:57→11:57)
[2017-04-02] MEDS: PEPCID IV SCH ×2 (10:08→22:25)
--- NOTE | 2017-04-02 11:45 | Gastroenterology Consultation ---
History of Present Illness - Reason for Consult Consult date: 04/02/17 Intractable vomiting, hematemesis Requesting physician: JORGE A DELGADO - History of Present Illness The patient is a 41 year old female for whom consultation was requested for intractable vomiting and coffee ground colored hematemesis. She had gastric bypass surgery in 2005 and had had intermittent outlet obstructions and frequent vomiting since that time. She has had two prior gastric outlet dilations endoscopically and reports that after the intial surgery, she required two surgical revisions. The patient has had progressive vomiting for the past 2 months and has been losing weight again. She takes Goody powders daily, frequently 6 doses. She does not smoke or drink. Past History Past Medical History: anemia, diabetes, hypertension, other (bipolar, obesity, metaabolic synddrome) Past Surgical History: hysterectomy, Other (gastric bypass) Social history: , lives with family. denies: smoking, alcohol abuse, prescription drug abuse Family history: diabetes, hypertension Medications and Allergies Allergies Allergy/AdvReac Type Severity Reaction Status Date / Time No Known Allergies Allergy Verified 12/27/14 11:03 Home Medications Medication Instructions Recorded Confirmed Last Taken Type Bismuth Subsalicylate [Pepto 15 ml PO PRN PRN 04/01/17 04/01/17 Unknown History Bismol] metFORMIN [Glucophage] 500 mg PO BID 04/02/17 04/02/17 Unknown History Active Meds: Active Medications Acetaminophen (Tylenol) 650 mg PO Q4H PRN PRN Reason: Pain MILD(1-3)/Fever >100.5/MARIE Albuterol (Proventil) 2.5 mg IH Q4HRT PRN PRN Reason: Shortness Of Breath Famotidine (Pepcid) 20 mg IV BID [facility] Last Admin: 04/02/17 10:08 Dose: 20 mg Influenza Virus Vaccine Quadrival (Fluarix Quad [id number](36 Mos+)) 0.5 ml IM .ONCE ONE Stop: 04/02/17 12:01 Insulin Aspart (Novolog) 0 units SUB-Q ACHS [facility] PRN Reason: Protocol Morphine Sulfate (Morphine) 1 mg IV Q6H PRN PRN Reason: Pain, Moderate (4-6) Last Admin: 04/02/17 10:08 Dose: 1 mg Ondansetron HCl (Zofran) 4 mg IV Q6H PRN PRN Reason: Nausea And Vomiting Last Admin: 04/02/17 08:33 Dose: 4 mg Pantoprazole Sodium (Protonix) 20 mg PO QDAY [facility] Pneumococcal Polyvalent Vaccine (Pneumovax 23) 0.5 ml IM .ONCE ONE Stop: 04/02/17 12:01 Sucralfate (Carafate) 1 gm PO ACHS [facility] Last Admin: 04/02/17 09:57 Dose: Not Given Review of Systems - Review of Systems Constitutional: weight loss Eyes: no change in vision Ears, Nose, Throat: no decreased hearing, no difficulty swallowing, no epistaxis , no painful swallowing Breasts: deferred Cardiovascular: no chest pain, no shortness of breath, no syncope Respiratory: no cough, no shortness of breath, no wheezing Gastrointestinal: abdominal pain, nausea, vomiting, hematemesis, no diarrhea, no constipation, no change in bowel habits, no BRBPR, no melena Rectal: no pain Female Genitourinary: deferred Musculoskeletal: no gait dysfunction, no joint pain, no muscle pain Integumentary: no rash, no pruritis, no jaundice Neurological: no head injury, no paralysis, no weakness Psychiatric: no anxiety, no memory loss Endocrine: no cold intolerance, no heat intolerance Hematologic/Lymphatic: no easy bruising Allergic/Immunologic: no wheezing Exam - Constitutional Vital Signs: Temp Pulse Resp BP Pulse Ox 98.0 F 61 18 101/63 98 04/02/17 08:27 04/02/17 08:27 04/02/17 08:27 04/02/17 08:27 04/02/17 08:27 General appearance: no acute distress, well-nourished - EENT Eyes: PERRL ENT: hearing intact, clear oral mucosa, dentition normal - Neck Neck: supple, normal ROM, no masses or JVD - Respiratory Respiratory effort: normal Respiratory: bilateral: CTA - Breasts Breasts: deferred - Cardiovascular Rhythm: regular Heart Sounds: Present: S1 & S2. Absent: gallop, rub Extremities: pulses intact, No edema, normal color, Full ROM - Gastrointestinal General gastrointestinal: Present: soft, tender (Epigastric tenderness, no rebound), non-distended, normal bowel sounds. Absent: hepatomegaly, splenomegaly, mass Rectal Exam: deferred - Genitourinary Female Genitourinary: deferred - Integumentary Integumentary: Present: clear, warm, dry - Neurologic Neurological: alert and oriented x3 - Psychiatric Psychiatric: appropriate mood/affect, intact judgment & insight, memory intact - Labs CBC & Chem 7: 04/01/17 09:45 04/01/17 09:45 Assessment and Plan - Patient Problems (1) Hematemesis Current Visit: Yes Status: Acute Qualifiers: Nausea presence: N Plan to address problem: Rule out marginal ulcer, gastritis due to inappropriate salicylate use. Rule out recurrent partial gastric outlet obstruction. EGD will be planned tomorrow AM (2) Hx of gastric bypass Current Visit: Yes Status: Acute (3) Bipolar disorder Current Visit: No Status: Chronic Qualifiers: Active/Remission status: currently active Current bipolar episode type: depressed Current episode severity: current episode moderate Psychotic features: without psychotic features Most recent bipolar episode type: M
[2017-04-02] MEDS ORDERED: Fluarix Quad 2017-2018(36 MOS+) IM ONE ×2 (12:00→14:30)
[2017-04-02] MEDS ORDERED: PNEUMOVAX 23 IM ONE ×2 (12:00→14:30)
[2017-04-02] MEDS: MORPHINE IV PRN ×3 (13:27→22:47)
[2017-04-02] MEDS: D5NS 1,000 ML IV SCH ×2 (13:33→22:31)
[2017-04-02] MEDS: NOVOLOG SUB-Q SCH ×3 (14:37→22:27)
[2017-04-02] MEDS: PROTONIX PO SCH (16:53)
--- NOTE | 2017-04-02 17:49 | Anesthesia Consultation ---
Anesthesia Consult and Med Hx Date of service: 04/02/17 - Airway Anesthetic Teeth Evaluation: Good ROM Head & Neck: Adequate Mental/Hyoid Distance: Adequate Mallampati Class: Class II Intubation Access Assessment: Probably Good - Pulmonary Exam CTA: Yes - Cardiac Exam Cardiac Exam: RRR - Pre-Operative Health Status ASA Pre-Surgery Classification: ASA3 Proposed Anesthetic Plan: MAC - Pulmonary Hx Smoking: No Hx Asthma: Yes Hx Sleep Apnea: No - Cardiovascular System Hx Hypertension: Yes (on chart but patient denies) - Central Nervous System Hx Seizures: No CVA: No Hx Back Pain: Yes Hx Psychiatric Problems: Yes (bi-polar, major depression) - Gastrointestinal Hx Ulcer: Yes Hx Gastroesophageal Reflux Disease: Yes - Endocrine Hx End Stage Renal Disease: No Hx Liver Disease: No Hx Non-Insulin Dependent Diabetes: Yes Hx Thyroid Disease: No - Hematic Hx Anemia: Yes - Other Systems Hx Alcohol Use: No Hx Substance Use: No Hx Cancer: No Hx Obesity: Yes - Additional Comments Anesthesia Medical History Comments: h/o gastric bypass.
[2017-04-03 06:35] LABS: Basophils % (Auto) 0.6 % (0.0-1.8); Eosinophils % (Auto) 1.8 % (0.0-4.3); Hematocrit 32.9 % (30.3-42.9); Hemoglobin 10.6 gm/dl (10.1-14.3); Mean Corpuscular HGB Conc 32 % (30-34); Mean Corpuscular Volume 78 fl (79-97); Platelet Count 252 K/mm3 (140-440); Red Blood Count 4.22 M/mm3 (3.65-5.03); Red Cell Distribution Width 14.8 % (13.2-15.2)
[2017-04-03] MEDS ORDERED: WATER FOR IRRIG STERILE IR ONE (06:37)
[2017-04-03 06:43] LABS: Mean Corpuscular Hemoglobin 25 pg (28-32)
[2017-04-03 06:57] LABS: Anion Gap 16 mmol/L; Blood Urea Nitrogen 6 mg/dL (7-17); Calcium 8.9 mg/dL (8.4-10.2); Carbon Dioxide 24 mmol/L (22-30); Chloride 103.5 mmol/L (98-107); Glucose 103 mg/dL (65-100); Potassium 3.8 mmol/L (3.6-5.0); Sodium 140 mmol/L (137-145)
[2017-04-03] MEDS: MORPHINE IV PRN (06:57)
[2017-04-03] MEDS ORDERED: NACL 0.9% 1000 ML 1,000 ML IV SCH (07:00)
[2017-04-03] MEDS ORDERED: NACL 0.9% 1000 ML 1,000 ML ONE (07:13)
[2017-04-03] MEDS ORDERED: DIPRIVAN 10 MG/ML IV ONE ×2 (08:10)
--- NOTE | 2017-04-03 08:34 | Operative Report ---
Operative Report Operative Report: Date of procedure: 04/03/2017 Procedure: Esophagogastroduodenoscopy Preprocedure diagnosis: Intractable vomiting, history of partial gastric outlet obstruction. History of gastric bypass surgery. Post procedure diagnosis: Retained solid food contents consistent with gastroparesis. No outlet obstruction. Gastric bypass anatomy. Endoscopist: Dr. Webb Anesthesia: Monitored anesthesia care per anesthesia department Medications: Propofol per anesthesia Estimated blood loss: [0] After careful discussion of the nature and purpose of the procedure as well as details the technique risks benefits and alternatives consent was obtained. The patient was placed in the left lateral decubitus position and medicated per anesthesia. The tip of the [employer] EQ 570 video scope was passed per orum under direct vision into the esophagus and advanced into the stomach and descending duodenum. The stomach pouch was small consistent with her history of gastric bypass. Gastroduodenal anastomosis was widely patent. The scope was advanced distally. No bile was present consistent with the probability of prior Vincenzo-en-Y anatomy. The scope was withdrawn into the stomach and the stomach then gently insufflated with air. Retained solid food content was present in the stomach pouch. The stomach was further insufflated and the scope was then retroflexed and partially withdrawn. The cardia, fundus, and body of the stomach were within normal limits and easily distensible.The scope was then withdrawn in the forward position. The esophagogastric junction was at [38 cm]. A small hiatus hernia was present. The esophageal body was normal throughout. The procedure was was well tolerated and the patient was observed in recovery. Impressions: Retained solid food contents consistent with gastroparesis. No evidence of outlet obstruction. Small hiatus hernia. Small gastric remnant consistent with prior gastric bypass surgery. Plan: [Avoid narcotics. Clear liquid diet, advance to full liquid diet as tolerated. Home when diet as tolerated.] Electronically signed: Warren Webb MD
--- NOTE | 2017-04-03 08:46 | Post Anesthesia Evaluation ---
- Post Anesthesia Evaluation Patient Participated: Yes Airway Patent: Yes Stable Respiratory Function: Yes Temp > 96.8F: Yes Pain Manageable: Yes Adequeate Hydration: Yes Anesthesia Complications: No
--- NOTE | 2017-04-03 08:55 | Anesthesia Day of Surgery ---
Anesthesia Day of Surgery - Day of Surgery Patient Examined: Yes Patient H&P Reviewed: Yes Patient is NPO: Yes
[2017-04-03] MEDS: NOVOLOG SUB-Q SCH ×2 (09:29→13:07)
[2017-04-03] MEDS: ZOFRAN IV PRN (11:00)
--- NOTE | 2017-04-03 11:58 | Discharge Summary ---
Providers - Providers Date of Admission: 04/01/17 15:10 Date of discharge: 04/03/17 Attending physician: JORGE A DELGADO Primary care physician: CORRESPONDENCE CLERK Hospitalization Reason for admission: intractable nausea vomiting/hematemesis Condition: Stable Pertinent studies: EGD;Retained solid food contents consistent with gastroparesis. No evidence of outlet obstruction. Small hiatus hernia. Small gastric remnant consistent with prior gastric bypass surgery. Advised to Avoid narcotics. , advance diet as tolerated. CT abdomen and pelvis; no acute abdominal process, bilateral nephrolithiasis nonobstructing Hospital course: Discharge diagnosis; Acute upper GI bleeding; resolved Acute gastroparesis History of bipolar disorder Type 2 diabetes mellitus Status post gastric bypass surgery Brief history and hospital course: 44-year-old female patient with significant past medical history of status post gastric bypass surgery bipolar obesity metabolic syndrome type 2 diabetes mellitus hypertension was admitted through emergency room with intractable nausea vomiting and hematemesis patient was initially evaluated and admitted to the hospital, symptomatically managed Evaluated by GI, underwent EGD the findings of his possible Patient was advised to avoid narcotic pain medications Goody jaskaran Follow-up with primary care physician and GI per schedule Today she is comfortably in bed in a motor vehicle oriented 3 Vital signs are stable, no new complaints no nausea vomiting no hematemesis [id number] evaluation physical examination done by me prior to discharge is unremarkable as detailed below Patient is hemodynamically and clinically stable for discharge and does not need any further acute inpatient care at this time Observe 1-2 hours, if able to tolerate clear liquids ,will discharge her home Disposition: TO HOME OR SELFCARE Time spent for discharge: 31 min Core Measure Documentation - Palliative Care Palliative Care/ Comfort Measures: Not Applicable - Core Measures Any of the following diagnoses?: none Exam - Constitutional Vitals: Temp Pulse Resp BP Pulse Ox 98.5 F 65 18 125/80 100 04/03/17 07:27 04/03/17 07:27 04/03/17 07:27 04/03/17 07:27 04/03/17 07:27 General appearance: Present: no acute distress, well-nourished - EENT Eyes: Present: PERRL, EOM intact - Neck Neck: Present: supple, normal ROM - Respiratory Respiratory effort: normal Respiratory: negative: rales, rhonchi, wheezing - Cardiovascular Rhythm: regular Heart Sounds: Present: S1 & S2 - Extremities Extremities: no ischemia, No edema - Abdominal General gastrointestinal: Present: soft, non-tender, non-distended, normal bowel sounds - Integumentary Integumentary: Present: clear, warm - Musculoskeletal Musculoskeletal: strength equal bilaterally - Psychiatric Psychiatric: appropriate mood/affect, cooperative - Neurologic Neurologic: CNII-XII intact, moves all extremities Plan Activity: no restrictions Diet: diabetic, advance as tolerated, other (soft diet ) Additional Instructions: If you have new episodes of GI bleeding contact M.D. or go to emergency room. Avoid narcotic pain medications, NSAIDs, recommended by GI. 2 days work excuse on 04/04/2017, 04/05/2017. Check with primary care physician in one to 2 days Follow up with: NITIN KAPOOR MD [Primary Care Provider] - 3-5 Days RICHARD MENDEZ MD [Staff Physician] - 7 Days Prescriptions: Docusate Sodium [Colace] 100 mg PO BID PRN #20 capsule PRN Reason: Constipation Pantoprazole [Protonix TAB] 20 mg PO QDAY #14 tablet. Promethazine [Phenergan TAB] 25 mg PO Q8HR PRN #15 tab PRN Reason: Nausea And Vomiting
[2017-04-03] MEDS: PROTONIX PO SCH (13:08)
[2017-04-03 13:18] VITALS: BP 107/73
== END 2017-04-03 16:55 | disposition home or self-care (01) | DRG 74 ==
LOC: ED 09:05 → 3A 15:10
PROVIDERS: ADMIT Internal Medicine; ATTEND Internal Medicine
PROC: 0DJ08ZZ Inspection of Upper Intestinal Tract, Via Natural or Artificial Opening Endoscopic (ICD-10-PCS; principal; 2017-04-03)
DX: E11.43 Type 2 diabetes mellitus with diabetic autonomic (poly)neuropathy (principal); K92.2 Gastrointestinal hemorrhage, unspecified; K92.0 Hematemesis; I10 Essential (primary) hypertension; F31.9 Bipolar disorder, unspecified; D64.9 Anemia, unspecified; E88.81 Metabolic syndrome and other insulin resistance; R00.1 Bradycardia, unspecified; J45.909 Unspecified asthma, uncomplicated; K44.9 Diaphragmatic hernia without obstruction or gangrene; N20.0 Calculus of kidney; K31.84 Gastroparesis; Z98.84 Bariatric surgery status; Z90.710 Acquired absence of both cervix and uterus; Z79.84 Long term (current) use of oral hypoglycemic drugs; Z83.3 Family history of diabetes mellitus; Z82.49 Family history of ischemic heart disease and other diseases of the circulatory system
CPT/HCPCS: 36415; 74176; 80048; 80053; 81001; 82962; 83690; 85025; 87116; 87430; 90686; 90732; 96361; 96374; 96375; 96376; C9113; J1170; J2270; J2405; J2704; J7030; J7042

== ENCOUNTER 2017-08-14 12:21 | Emergency (ER) | payer MEDICAID ==
[2017-08-14 16:11] LABS: Alanine Aminotransferase 7 units/L (7-56); Albumin 4.4 g/dL (3.9-5); Calcium 9.6 mg/dL (8.4-10.2); Hemolysis Index 6; Lipase 29 units/L (13-60); Mean Corpuscular HGB Conc 31 % (30-34); Mean Corpuscular Volume 80 fl (79-97); Platelet Count 260 K/mm3 (140-440); Red Blood Count 4.92 M/mm3 (3.65-5.03); Red Cell Distribution Width 15.7 % (13.2-15.2)
[2017-08-14 16:14] LABS: Hematocrit 39.3 % (30.3-42.9); Hemoglobin 12.1 gm/dl (10.1-14.3); Mean Corpuscular Hemoglobin 25 pg (28-32)
[2017-08-14 16:17] LABS: Bilirubin,Urine NEG (Negative); Blood,Urine SM (Negative); Color,Urine Yellow (Yellow); Mucus,Urine 3+ /HPF; Nitrite,Urine NEG (Negative)
[2017-08-14 16:28] LABS: BUN/Creatinine Ratio 13; Blood Urea Nitrogen 9 mg/dL (7-17)
[2017-08-14] MEDS ORDERED: ZOFRAN ODT PO ONE (18:14)
[2017-08-14] MEDS ORDERED: ZOFRAN ODT ONE (18:15)
--- NOTE | 2017-08-14 18:23 | Emergency Department Report ---
ED Abdominal Pain HPI - General Chief Complaint: Abdominal Pain Stated Complaint: VOMITING BLOOD/BLOOD IN URINE Time Seen by Provider: 08/14/17 17:46 Source: patient Mode of arrival: Ambulatory Limitations: No Limitations - History of Present Illness Initial Comments: Patient is a 42 y/o female with a history of gastric bypass several years ago who comes in for worsening nausea vomiting, as well as increased urinary frequency. -: Gradual Location: diffuse Radiation: none Migration to: no migration Severity: moderate Quality: cramping, fullness Consistency: intermittent Improves With: nothing Worsens With: nothing Context: other (has a history of gastroparesis) Associated Symptoms: nausea, vomiting - Related Data Home Medications Medication Instructions Recorded Confirmed Last Taken Bismuth Subsalicylate [Pepto 15 ml PO PRN PRN 04/01/17 04/01/17 Unknown Bismol] metFORMIN [Glucophage] 500 mg PO BID 04/02/17 04/02/17 Unknown Previous Rx's Medication Instructions Recorded Last Taken Type Docusate Sodium [Colace] 100 mg PO BID PRN #20 capsule 04/03/17 Unknown Rx Pantoprazole [Protonix TAB] 20 mg PO QDAY #14 tablet. 04/03/17 Unknown Rx Promethazine [Phenergan TAB] 25 mg PO Q8HR PRN #15 tab 04/03/17 Unknown Rx Phenazopyridine [Pyridium] 200 mg PO TID #6 tab 08/14/17 Unknown Rx Promethazine [Phenergan TAB] 25 mg PO Q8HR PRN #20 tab 08/14/17 Unknown Rx Allergies Allergy/AdvReac Type Severity Reaction Status Date / Time No Known Allergies Allergy Verified 12/27/14 11:03 ED Review of Systems ROS: Stated complaint: VOMITING BLOOD/BLOOD IN URINE Other details as noted in HPI Constitutional: see HPI. denies: chills, fever Eyes: denies: eye pain, eye discharge, vision change ENT: denies: ear pain, throat pain Respiratory: denies: cough, shortness of breath, wheezing Cardiovascular: denies: chest pain, palpitations Endocrine: no symptoms reported Gastrointestinal: abdominal pain, nausea, vomiting. denies: diarrhea Genitourinary: denies: urgency, dysuria, discharge Musculoskeletal: denies: back pain, joint swelling, arthralgia Skin: denies: rash, lesions Neurological: denies: headache, weakness, paresthesias Psychiatric: denies: anxiety, depression Hematological/Lymphatic: denies: easy bleeding, easy bruising ED Past Medical Hx - Past Medical History Previous Medical History?: Yes Hx Hypertension: Yes (on chart but patient denies) Hx Congestive Heart Failure: No Hx Diabetes: Yes (TYPE 2) Hx Liver Disease: No Hx Seizures: No Hx Psychiatric Treatment: Yes (SEVERE BIPOLAR / SEVERE DEPRESSION) Hx Asthma: Yes Hx COPD: No Hx HIV: No Additional medical history: ANEMIA. VERTIGO. Gastropoesis - Surgical History Past Surgical History?: Yes Additional Surgical History: GASTRIC BYPASS 2005. HYSTERECTOMY 2013 - Social History Smoking Status: Never Smoker Substance Use Type: None - Medications Home Medications: Home Medications Medication Instructions Recorded Confirmed Last Taken Type Bismuth Subsalicylate [Pepto 15 ml PO PRN PRN 04/01/17 04/01/17 Unknown History Bismol] metFORMIN [Glucophage] 500 mg PO BID 04/02/17 04/02/17 Unknown History Docusate Sodium [Colace] 100 mg PO BID PRN #20 capsule 04/03/17 Unknown Rx Pantoprazole [Protonix TAB] 20 mg PO QDAY #14 tablet.dr 04/03/17 Unknown Rx Promethazine [Phenergan TAB] 25 mg PO Q8HR PRN #15 tab 04/03/17 Unknown Rx Phenazopyridine [Pyridium] 200 mg PO TID #6 tab 08/14/17 Unknown Rx Promethazine [Phenergan TAB] 25 mg PO Q8HR PRN #20 tab 08/14/17 Unknown Rx ED Physical Exam - General Limitations: No Limitations General appearance: alert, in no apparent distress - Head Head exam: Present: atraumatic - Eye Eye exam: Present: normal appearance, PERRL, EOMI - ENT ENT exam: Present: normal exam - Neck Neck exam: Present: normal inspection - Respiratory Respiratory exam: Present: normal lung sounds bilaterally, respiratory distress , wheezes - Cardiovascular Cardiovascular Exam: Present: regular rate, normal rhythm - GI/Abdominal GI/Abdominal exam: Present: soft, tenderness (LUQ/LLQ), normal bowel sounds. Absent: distended ED Course Vital Signs 08/14/17 08/14/17 08/14/17 15:09 18:24 18:53 Temperature 98.2 F 98.4 F Pulse Rate 81 82 Respiratory 18 18 18 Rate Blood Pressure 117/83 Blood Pressure 123/76 [Left] O2 Sat by Pulse 100 100 100 Oximetry - Reevaluation(s) Reevaluation #1: 08/14/17 19:49 Patient doing better, reviewed labs and explained CT results. Will try outpatient follow up with PMD. Return as needed. She expresses understanding. ED Medical Decision Making - Lab Data Result diagrams: 08/14/17 15:36 08/14/17 15:36 Critical Care Time: No Critical care attestation.: If time is entered above; I have spent that time in minutes in the direct care of this critically ill patient, excluding procedure time. ED Disposition Clinical Impression: Intractable abdominal pain Vomiting Qualifiers: Vomiting type: cyclical vomiting Vomiting Intractability: non-intractable Nausea presence: with nausea Qualified Code(s): G43.A0 - Cyclical vomiting, not intractable Disposition: DC-01 TO HOME OR SELFCARE Is pt being admited?: No Does the pt Need Aspirin: No Condition: Stable Instructions: Abdominal Pain (ED), Acute Nausea and Vomiting (ED) Additional Instructions: Rest, fluids, follow up with your PMD, return as needed, watch for worsening, new symptoms. Take antibiotics as prescribed. Call 911 if you think you're having a life threatening emergency. Prescriptions: Phenazopyridine [Pyridium] 200 mg PO TID #6 tab Promethazine [Phenergan TAB] 25 mg PO Q8HR PRN #20 tab PRN Reason: Nausea Referrals: PRIMARY CARE, [Primary Care Provider] - 3-5 Days
[2017-08-14 18:54] VITALS: BP 123/76
--- NOTE | 2017-08-14 19:18 | Cat Scan Report ---
FINAL REPORT EXAM: CT ABDOMEN PELVIS WO CON HISTORY: vomiting, blood in urine, abd pain TECHNIQUE: CT of the abdomen and pelvis without contrast PRIORS: Comparison is November 18, 2016 FINDINGS: No acute abnormality identified in the visualized lung bases No focal abnormality seen within the liver parenchyma. Spleen is normal size No peripancreatic inflammatory changes observed. There is evidence for prior gastric surgery. At the upper pole left kidney there is a nonobstructing 0.68 centimeter calculus unchanged from prior exam. There are several punctate nonobstructing right renal calculi. There is no evidence for hydronephrosis bilaterally. No ureteral calculus identified Note is made of a left adrenal low-density 2.1 x 1.3 centimeter focus unchanged from prior exam most consistent with adenoma. No evidence for aortic aneurysm No evidence for colonic or small bowel distention. The appendix is identified and is unremarkable. IMPRESSION: Nonobstructing bilateral renal calculi unchanged
== END 2017-08-14 20:00 | disposition home or self-care (01) ==
LOC: ED 12:21
DX: R10.9 Unspecified abdominal pain (principal); R11.2 Nausea with vomiting, unspecified; I10 Essential (primary) hypertension; E11.9 Type 2 diabetes mellitus without complications
CPT/HCPCS: 36415; 74176; 80053; 81001; 82962; 83690; 85025; 99284; Q0162

== ENCOUNTER 2018-01-31 19:38 | Emergency (ER) | payer MEDICAID, OTHER ==
[2018-01-31 20:28] VITALS: BP 119/77
--- NOTE | 2018-01-31 21:41 | XRay Report ---
FINAL REPORT PROCEDURE: XR KNEE 3V LT TECHNIQUE: LEFT knee radiographs, AP, lateral and sunrise views. CPT 52948 HISTORY: pain, swelling COMPARISON: No prior studies are available for comparison. FINDINGS: Fracture (s) and/or Dislocation(s): None . Alignment: Normal . Joint space(s): Normal . Soft tissues: Normal . Bone mineralization: Minimal degree osteophyte formation is noted involving the patellofemoral joint.. Foreign bodies: None . IMPRESSION: No acute fracture Minimal degree osteoarthritis.
[2018-02-01] MEDS ORDERED: ULTRAM PO ONE (00:08)
[2018-02-01] MEDS ORDERED: ULTRAM ONE (00:09)
--- NOTE | 2018-02-01 00:38 | Emergency Department Report ---
ED Extremity Problem HPI - General Chief complaint: Extremity Problem,Nontraumatic Stated complaint: KNEE PAIN Time Seen by Provider: 02/01/18 00:11 Source: patient Mode of arrival: Ambulatory Limitations: No Limitations - History of Present Illness Initial comments: 42-year-old -[place] female complains of left knee pain that radiates to the foot 2 months. Patient reports that the pain feels like a burning and it travels distal from the knee to the foot. She felt like her legs contracted. Patient has not taken any pain medication for the pain. Patient reports he has a history of diabetes but currently on no medication. Patient denies any recent trauma but she does report she works at [employer] on her feet. Reports that her pain can be a 10 out of 10 at times. MD Complaint: extremity pain, extremity swelling -: month(s) (2) Location: left History of Same: No Radiation: distal Severity scale (0 -10): 10 Quality: burning, aching, other Consistency: constant (Aaron) Improves with: other (hasn't tried any pain medication) - Related Data Home Medications Medication Instructions Recorded Confirmed Last Taken Bismuth Subsalicylate [Pepto 15 ml PO PRN PRN 04/01/17 04/01/17 Unknown Bismol] metFORMIN [Glucophage] 500 mg PO BID 04/02/17 04/02/17 Unknown Previous Rx's Medication Instructions Recorded Last Taken Type Docusate Sodium [Colace] 100 mg PO BID PRN #20 capsule 04/03/17 Unknown Rx Pantoprazole [Protonix TAB] 20 mg PO QDAY #14 tablet. 04/03/17 Unknown Rx Promethazine [Phenergan TAB] 25 mg PO Q8HR PRN #15 tab 04/03/17 Unknown Rx Phenazopyridine [Pyridium] 200 mg PO TID #6 tab 08/14/17 Unknown Rx Promethazine [Phenergan TAB] 25 mg PO Q8HR PRN #20 tab 08/14/17 Unknown Rx Acetaminophen [Tylenol Arthritis] 650 mg PO TID #30 tablet.er 02/01/18 Unknown Rx Allergies Allergy/AdvReac Type Severity Reaction Status Date / Time No Known Allergies Allergy Verified 12/27/14 11:03 ED Review of Systems ROS: Stated complaint: KNEE PAIN Other details as noted in HPI Comment: All other systems reviewed and negative Musculoskeletal: joint swelling (left knee intermittent), arthralgia (left knee) ED Past Medical Hx - Past Medical History Hx Hypertension: Yes (on chart but patient denies) Hx Congestive Heart Failure: No Hx Diabetes: Yes (TYPE 2) Hx Liver Disease: No Hx Seizures: No Hx Psychiatric Treatment: Yes (SEVERE BIPOLAR / SEVERE DEPRESSION) Hx Asthma: Yes Hx COPD: No Hx HIV: No Additional medical history: ANEMIA. VERTIGO. Gastropoesis - Surgical History Additional Surgical History: GASTRIC BYPASS 2005. HYSTERECTOMY 2013 - Social History Smoking Status: Never Smoker Substance Use Type: None - Medications Home Medications: Home Medications Medication Instructions Recorded Confirmed Last Taken Type Bismuth Subsalicylate [Pepto 15 ml PO PRN PRN 04/01/17 04/01/17 Unknown History Bismol] metFORMIN [Glucophage] 500 mg PO BID 04/02/17 04/02/17 Unknown History Docusate Sodium [Colace] 100 mg PO BID PRN #20 capsule 04/03/17 Unknown Rx Pantoprazole [Protonix TAB] 20 mg PO QDAY #14 tablet.dr 04/03/17 Unknown Rx Promethazine [Phenergan TAB] 25 mg PO Q8HR PRN #15 tab 04/03/17 Unknown Rx Phenazopyridine [Pyridium] 200 mg PO TID #6 tab 08/14/17 Unknown Rx Promethazine [Phenergan TAB] 25 mg PO Q8HR PRN #20 tab 08/14/17 Unknown Rx Acetaminophen [Tylenol Arthritis] 650 mg PO TID #30 tablet.er 02/01/18 Unknown Rx ED Physical Exam - General Limitations: No Limitations General appearance: alert - Head Head exam: Present: atraumatic, normocephalic - ENT ENT exam: Present: mucous membranes moist - Expanded Lower Extremity Exam Left Upper Leg exam: Present: normal inspection, full ROM. Absent: tenderness Knee exam: Present: full ROM, swelling (animal swelling), full knee extension. Absent: tenderness, abrasion, laceration, ecchymosis, deformity, crepidus, erythema, effusion Lower Leg exam: Present: full ROM. Absent: tenderness, swelling Foot/Toe exam: Present: full ROM. Absent: tenderness, swelling - Neurological Exam Neurological exam: Present: alert, oriented X3 - Psychiatric Psychiatric exam: Present: normal affect, normal mood - Skin Skin exam: Present: warm, dry, intact, normal color. Absent: rash ED Course Vital Signs 01/31/18 20:17 Temperature 98.5 F Pulse Rate 82 Respiratory 18 Rate Blood Pressure 119/77 O2 Sat by Pulse 100 Oximetry ED Medical Decision Making - Medical Decision Making Patient has been evaluated by this provider fast track. Patient has been given tramadol for pain management. X-ray of the knee shows mild degenerative changes no fractures or dislocation Discussed the patient she should follow back up with her primary care provider. Tylenol arthritic pain medication. Critical care attestation.: If time is entered above; I have spent that time in minutes in the direct care of this critically ill patient, excluding procedure time. ED Disposition Clinical Impression: Left knee pain Qualifiers: Chronicity: acute Qualified Code(s): M25.562 - Pain in left knee Osteoarthritis of left knee Qualifiers: Osteoarthritis type: primary Qualified Code(s): M17.12 - Unilateral primary osteoarthritis, left knee Disposition: - TO HOME OR SELFCARE Is pt being admited?: No Does the pt Need Aspirin: No Condition: Stable Instructions: Osteoarthritis (ED) Additional Instructions: Please take pain medication as needed. Follow-up with [facility] your primary care provider. Prescriptions: Acetaminophen [Tylenol Arthritis] 650 mg PO TID #30 tablet.er Referrals: PRIMARY CAREMD [Primary Care Provider] - 3-5 Days [facility] [Provider Group] - 3-5 Days Forms: Work/School Release Form(ED)
== END 2018-02-01 00:45 | disposition home or self-care (01) ==
LOC: ED 19:38
DX: M17.12 Unilateral primary osteoarthritis, left knee (principal); M25.562 Pain in left knee; I10 Essential (primary) hypertension; E11.9 Type 2 diabetes mellitus without complications; F31.9 Bipolar disorder, unspecified; J45.909 Unspecified asthma, uncomplicated; D64.9 Anemia, unspecified; Z90.710 Acquired absence of both cervix and uterus
CPT/HCPCS: 82962

== ENCOUNTER 2018-03-09 13:03 | Emergency (ER) | payer OTHER ==
[2018-03-09 13:17] VITALS: BP 121/103
== END 2018-03-09 18:25 | disposition left against medical advice (07) ==
LOC: ED 13:03
DX: M79.606 Pain in leg, unspecified (principal); Z53.21 Procedure and treatment not carried out due to patient leaving prior to being seen by health care provider